=== PATIENT | female | born 1930 | race Caucasian/White ===

== ENCOUNTER 2017-01-04 19:27 | Emergency (ER) | payer MEDICARE, BC ==
--- NOTE | 2017-01-04 19:40 | Emergency Department Record ---
History of Present Illness - General Chief Complaint: Fall Injury Stated Complaint: FALL INJURY, RT SHOULDER AND ARM Time Seen by Provider: 01/04/17 19:40 Source: Patient Mode of Arrival: Wheelchair Limitations: No limitations - History of Present Illness Initial Comments: The patient is here due to injuring her R shoulder and arm just prior to getting here tonight. She slipped on a wet floor and landed on her R shoulder. She denies hitting her head or any LOC or neck pain. She is having pain from her R shoulder to her elbow. 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 Place Fall Occurred: Home Loss of Consciousness: None Prolonged Down Time?: No Symptoms Prior to Fall: None Severity: Mild Quality: Other Context: Tripped/slipped Associated Symptoms: Denies - [place] Coma Scale Eye Response: (4) Open spontaneously Motor Response: (6) Obeys commands Verbal Response: (5) Oriented [place] Total: 15 - Related Data Home Medications Medication Instructions Recorded Confirmed Last Taken Alendronate Sodium [Fosamax] 70 mg PO QWEEK tab 07/07/15 01/04/17 09/30/15 Levothyroxine Sodium 75 mcg PO QD tab 07/07/15 01/04/17 09/30/15 Losartan Potassium 50 mg PO QD tab 07/07/15 01/04/17 09/30/15 Allergies Allergy/AdvReac Type Severity Reaction Status Date / Time hydrocodone bitartrate Allergy Mild PT UNSURE Verified 01/04/17 19:37 [From Vicodin] OF REACTION Penicillins Allergy Mild PT UNSURE Verified 01/04/17 19:37 OF REACTION Travel Screening - Travel/Exposure Within Last 30 Days Have you traveled within the last 30 days?: No - Travel/Exposure Within Last Year Have you traveled outside the [place] in the last year?: No - Additonal Travel Details Have you been exposed to anyone with a communicable illness?: No - Travel Symptoms Symptom Screening: None Review of Systems Constitutional: Denies: Chills, Fever Past Medical History - SOCIAL HISTORY Smoking Status: Never smoker Alcohol Use: None Drug Use: None - RESPIRATORY Hx Respiratory Disorders: No - CARDIOVASCULAR Hx Cardio Disorders: Yes Hx Hypertension: Yes - NEURO Hx Neuro Disorders: Yes Hx Dementia: Yes - GI Hx GI Disorders: No - Hx Genitourinary Disorders: No - ENDOCRINE Hx Endocrine Disorders: No Hx Diabetes: Yes ("not anymore") Hx Thyroid Disease: No - MUSCULOSKELETAL Hx Musculoskeletal Disorders: No - PSYCH Hx Psych Problems: No - HEMATOLOGY/ONCOLOGY Hx Hematology/Oncology Disorders: No Family Medical History Any Significant Family History?: No Hx Cancer: Brother/Sister Physical Exam - General General Appearance: Alert, Oriented x3, Cooperative, No acute distress - Head Head exam: Atraumatic, Normocephalic, Normal inspection (There are no signs of injury.) - Eye Eye exam: Normal appearance, PERRL - Neck Neck exam: Normal inspection, Full ROM. negative: Tenderness (There is no posterior tenderness.) - Respiratory Respiratory exam: Normal lung sounds bilaterally. negative: Respiratory distress - Cardiovascular Cardiovascular Exam: Regular rate, Normal rhythm, Normal heart sounds - Extremities Extremities exam: Normal capillary refill, Tenderness (Mainly to the R anterior shoulder.). negative: Normal inspection (There is swelling to the R anterior shoulder with tenderness. There is decreased flexion and extension due to pain and the patient is not able to abduct the R arm.), Full ROM Course Vital Signs 01/04/17 19:36 Temperature 98.4 F Pulse Rate [ 72 Pulse Ox Probe] Respiratory 18 Rate Blood Pressure 184/63 [Left Arm] Pulse Ox 97 - Reevaluation(s) Reevaluation #1: I did explain to the patient that her xrays were normal and I am concerned about her Rotater cuff. She is to use the R arm sling for 5-7 days and take Tylenol for pain. She is to F/U with her PCP for recheck next week if possible. 01/04/17 20:18 Medical Decision Making - Data Complexity MDM Data: X-Ray Ordered and/or Reviewed - Radiology Data Radiology results: Report reviewed (R Humerus: Neg.) Disposition Disposition: Discharge Clinical Impression: Shoulder injury Qualifiers: Encounter type: initial encounter Laterality: right Qualified Code(s): S49.91XA - Unspecified injury of right shoulder and upper arm, initial encounter Disposition: Home, Self-Care Condition: (2) Stable Instructions: Shoulder Sprain (ED) Additional Instructions: Please use Tylenol for pain and use the R arm sling for 5-7 days. Please use ice to the shoulder for 2 days. Please see your PCP next week for recheck if not better and return to the ER if worse. Forms: Patient Portal Access Time of Disposition: 20:20 Quality - Quality Measures Quality Measures: N/A - Blood Pressure Screening View Details: Yes Blood Pressure Classification: Hypertensive Reading Systolic Measurement: 184 Diastolic Measurement: 63 Screening for High Blood Pressure: < Pre-Hypertensive BP, F/U Documented > [ [id number]] Pre-Hypertensive Follow-up Interventions: Follow-up with rescreen every year.
[2017-01-04] MEDS ORDERED: ACETAMINOPHEN 325 MG TAB PO ONE (20:24)
--- NOTE | 2017-01-05 13:06 | RADIOLOGY REPORT ---
EXAM: RIGHT HUMERUS HISTORY: PAIN. TECHNIQUE: Four views of the right humerus were obtained. Comparison: None. Encounter: Initial. FINDINGS: Osteopenia. Negative for acute fracture or dislocation. Mild degenerative changes of the glenohumeral joint. The soft tissues are unremarkable. IMPRESSION: OSTEOPENIA. MILD DEGENERATIVE CHANGE. JOB NUMBER: [id number] MTDD
== END 2017-01-04 20:28 | disposition home or self-care (01) ==
LOC: ER 19:27
DX: S49.91XA Unspecified injury of right shoulder and upper arm, initial encounter (principal); M25.521 Pain in right elbow; W01.0XXA Fall on same level from slipping, tripping and stumbling without subsequent striking against object, initial encounter; Y92.009 Unspecified place in unspecified non-institutional (private) residence as the place of occurrence of the external cause
CPT/HCPCS: 99283

== ENCOUNTER 2017-10-05 17:54 | Emergency (ER) | payer MEDICARE, BC ==
--- NOTE | 2017-10-05 19:10 | Emergency Department Record ---
History of Present Illness - General Chief Complaint: Fall Injury Stated Complaint: FALL Source: Patient, Family Mode of Arrival: Ambulatory Limitations: No limitations - History of Present Illness Initial Comments: 87 yo female presents with facial/forehead contusion and right shoulder pain. She fell sometime very early this morning at [facility]. No reported LOC. NO blood thinners. No confusion or mental status changes since the fall. She has some forehead and facial abrasions. She has acute on chronic right shoulder pain. No other concerns. No new or acute changes in her health. She is at her baseline. Dr Gray is her PCP. 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 Witnessed: No Place Fall Occurred: correction/SNF Loss of Consciousness: Unsure Prolonged Down Time?: No Symptoms Prior to Fall: None Location: Head, Other (Right shoulder) Location - Extremities: Right: Shoulder Severity: Moderate Quality: Aching Context: Tripped/slipped Associated Symptoms: Denies - [place] Coma Scale Eye Response: (4) Open spontaneously Motor Response: (6) Obeys commands Verbal Response: (5) Oriented [place] Total: 15 - Related Data Home Medications Medication Instructions Recorded Confirmed Last Taken Acetaminophen [Mapap] 1,000 mg PO BID 10/05/17 10/05/17 Unknown Levothyroxine Sodium 50 mg PO DAILY 10/05/17 10/05/17 Unknown Multivit-Min/FA/Lycopen/Lutein 1 each PO DAILY 10/05/17 10/05/17 Unknown [Centrum Silver Tablet] Quetiapine Fumarate [Seroquel] 25 mg PO QHS 10/05/17 10/05/17 Unknown Allergies Allergy/AdvReac Type Severity Reaction Status Date / Time hydrocodone bitartrate Allergy Mild PT UNSURE Verified 01/04/17 19:37 [From Vicodin] OF REACTION Penicillins Allergy Mild PT UNSURE Verified 01/04/17 19:37 OF REACTION midazolam [From Versed] AdvReac "hard time Verified 10/05/17 19:05 waking up" Review of Systems Constitutional: Denies: Chills, Fever, Malaise, Weakness Eyes: Denies: Eye discharge, Eye pain, Photophobia, Vision change ENT: Denies: Congestion, Throat pain Respiratory: Denies: Cough, Dyspnea, Hemoptysis, Stridor, Wheezes Cardiovascular: Denies: Chest pain, Palpitations, Syncope Endocrine: Denies: Fatigue, Polydipsia, Polyuria Gastrointestinal: Denies: Abdominal pain, Diarrhea, Nausea, Vomiting Genitourinary: Denies: Dysuria, Urgency Musculoskeletal: Reports: As per HPI, Arthralgia. Denies: Back pain, Joint swelling, Myalgia, Neck pain Skin: Reports: Bruising. Denies: Change in color, Rash Neurological: Denies: Headache, Numbness, Vertigo, Weakness Psychiatric: Denies: Anxiety Hematological/Lymphatic: Denies: Easy bleeding, Easy bruising, Swollen glands Past Medical History - SOCIAL HISTORY Smoking Status: Never smoker Drug Use: None - RESPIRATORY Hx Respiratory Disorders: No - CARDIOVASCULAR Hx Cardio Disorders: Yes Hx Hypertension: Yes - NEURO Hx Neuro Disorders: Yes Hx Dementia: Yes - GI Hx GI Disorders: No - Hx Genitourinary Disorders: No - ENDOCRINE Hx Endocrine Disorders: No Hx Diabetes: Yes ("not anymore") Hx Thyroid Disease: No - MUSCULOSKELETAL Hx Musculoskeletal Disorders: No - PSYCH Hx Psych Problems: No - HEMATOLOGY/ONCOLOGY Hx Hematology/Oncology Disorders: No Family Medical History Hx Cancer: Brother/Sister Physical Exam - General General Appearance: Alert, Oriented x3, Cooperative, No acute distress Limitations: No limitations - Head Head exam: negative: Atraumatic, Normal inspection Head exam detail: Abrasion, Contusion Image of Face/Head: 1 - bruising and abrasions to the left forehead and face, no visible changes of the eye - Eye Eye exam: Normal appearance, PERRL, EOMI, Periorbital swelling, Periorbital tenderness. negative: Conjunctival injection, Scleral icterus - ENT ENT exam: Normal exam, Mucous membranes moist Ear exam: Normal external inspection Nasal Exam: Normal inspection Mouth exam: Normal external inspection - Neck Neck exam: Normal inspection, Full ROM. negative: Meningismus, Tenderness - Respiratory Respiratory exam: Normal lung sounds bilaterally. negative: Chest wall tenderness, Decreased breath sounds, Rales, Respiratory distress, Rhonchi, Stridor, Wheezes - Cardiovascular Cardiovascular Exam: Regular rate, Normal rhythm, Normal heart sounds - GI/Abdominal GI/Abdominal exam: Soft. negative: Distended, Guarding, Rebound, Rigid, Tenderness - Rectal Rectal exam: Deferred - exam: Deferred - Extremities Extremities exam: Normal inspection, Full ROM, Normal capillary refill, Tenderness. negative: Calf tenderness, Joint swelling, Pedal edema Image of Full Body: 1 - full ROM but tender to palpation, no crepitus - Back Back exam: Reports: Normal inspection, Full ROM. Denies: CVA tenderness (R), CVA tenderness (L), Muscle spasm, Paraspinal tenderness, Rash noted, Tenderness , Vertebral tenderness - Neurological Neurological exam: Alert, Normal gait, Oriented X3, Other (The patient is at her baseline). negative: Altered - Psychiatric Psychiatric exam: Normal affect, Normal mood. negative: Agitated, Anxious - Skin Skin exam: Abrasion, Dry, Normal color, Warm. negative: Intact Course - Reevaluation(s) Reevaluation #1: 10/05/17 20:47 The radiology studies were reviewed HCT is negative for acute process. Cervical CT is negative for acute injury. 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, foraminal narrow Shoulder XR is negative The results were discussed with the patient and family DC to [facility] We discussed reasons to return and home care Disposition Disposition: Discharge Clinical Impression: Contusion of shoulder, right Qualifiers: Encounter type: initial encounter Qualified Code(s): S40.011A - Contusion of right shoulder, initial encounter Head contusion Qualifiers: Encounter type: initial encounter Contusion of head detail: periocular area Laterality: right Qualified Code(s): S00.11XA - Contusion of right eyelid and periocular area, initial encounter Disposition: Home, Self-Care Condition: (1) Good Instructions: Fall Prevention for Older Adults (ED) Additional Instructions: Ice to any sore areas Follow up this ER visit with your doctor first of the week Return if you have any new or worsening of concerns Forms: Patient Portal Access Time of Disposition: 20:49 Quality - Quality Measures Quality Measures: N/A - Blood Pressure Screening Does Patient Have Any of the Following: No Blood Pressure Classification: Normal BP Reading Systolic Measurement: 111 Diastolic Measurement: 58 Screening for High Blood Pressure: < Normal BP, F/U Not Required > [G8783]
--- NOTE | 2017-10-07 19:56 | CT SCAN REPORT ---
EXAM: CT SCAN HEAD WO CONTRAST HISTORY: PATIENT FELL AND HIT HEAD. TECHNIQUE: Axial CT scan of the head performed without IV contrast. COMPARISON: Head CT 09/08/15. ENCOUNTER: Initial. FINDINGS: No definite acute intracranial hemorrhage identified. No focal mass effect or midline shift apparent. Moderate generalized atrophy as before with some chronic-appearing deep white matter changes, nonspecific but likely representing some chronic small vessel deep white matter ischemic disease. No definite acute infarct or intracranial mass lesion is seen. No depressed calvarial fracture evident. IMPRESSION: 1. GENERALIZED ATROPHY WITH CHRONIC-APPEARING DEEP WHITE MATTER CHANGES. 2. NO DEFINITE ACUTE INTRACRANIAL HEMORRHAGE OR FOCAL MASS EFFECT EVIDENT. JOB NUMBER: [id number] MTDD
--- NOTE | 2017-10-07 20:03 | CT SCAN REPORT ---
EXAM: CT SCAN CERVICAL SPINE WO CONTRAST HISTORY: PATIENT FELL. TECHNIQUE: Axial CT scan of the entire cervical spine performed without IV contrast. COMPARISON: None. ENCOUNTER: Initial. FINDINGS: No apical pneumothorax evident. There is some mild apical pleural thickening bilaterally. No definite fracture of the cervical spine seen. No prevertebral soft tissue swelling evident. Multilevel degenerative change in the cervical spine with narrowing of the third through the sixth cervical interspaces with associated hypertrophic spurring. Prominent degenerative change at the odontoid-anterior arch of C1 articulation as well and multilevel facet joint arthropathy is present. Multilevel foraminal stenosis. There also appears to be a prominent disc protrusion at the C3-4 level with resulting central stenosis. IMPRESSION: 1. NO DEFINITE FRACTURE OR PREVERTEBRAL SOFT TISSUE SWELLING EVIDENT. 2. MULTILEVEL DEGENERATIVE CHANGE IN THE CERVICAL SPINE DETAILED ABOVE. JOB NUMBER: [id number] MTDD
--- NOTE | 2017-10-07 20:05 | RADIOLOGY REPORT ---
EXAM: SHOULDER, RIGHT HISTORY: PATIENT FELL WITH RIGHT SHOULDER PAIN. TECHNIQUE: Four views right shoulder. COMPARISON: No prior right shoulder series but comparison is made with a right humerus series of 01/04/17. ENCOUNTER: Initial. FINDINGS: Diffuse osteopenia is seen consistent with osteoporosis. No definite fracture or dislocation at the right shoulder identified. IMPRESSION: 1. OSTEOPOROSIS. 2. NO FRACTURE OF THE RIGHT SHOULDER IDENTIFIED. JOB NUMBER: [id number] MTDD
== END 2017-10-05 21:09 | disposition home or self-care (01) ==
LOC: ER 17:54
DX: S40.011A Contusion of right shoulder, initial encounter (principal); S00.11XA Contusion of right eyelid and periocular area, initial encounter; W01.10XA Fall on same level from slipping, tripping and stumbling with subsequent striking against unspecified object, initial encounter; Y92.129 Unspecified place in nursing home as the place of occurrence of the external cause
CPT/HCPCS: 70450; 72125; 99283; 99284